=== PATIENT | female | born 1950 | race Caucasian/White ===

== ENCOUNTER → 2019-08-01 | Outpatient (REF) | LOC: M LAB LCGH 11:54 | PROVIDERS: ATTEND Physician Assistant | DX: D48.5 Neoplasm of uncertain behavior of skin (principal) ==

== ENCOUNTER → 2019-11-27 | Outpatient (CLI) | payer BC, MEDICARE ==
--- NOTE | 2019-11-27 15:09 | ECGEPIP ---
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
[2019-11-27 15:21] LABS: HEMOGLOBIN 14.2 g/dl (12.0-15.5); MEAN CORPUSCULAR HEMOGLOBIN 30.4 pg (27.0-33.0); MEAN CORPUSCULAR HGB CONC 33.8 g/dl (32.0-36.5); MEAN CORPUSCULAR VOLUME 89.9 fl (80.0-96.0); PLATELET COUNT, AUTOMATED 351 10^3/uL (150-450); RED BLOOD COUNT 4.67 10^6/uL (4.00-5.40); WHITE BLOOD COUNT 8.5 10^3/uL (4.0-10.0)
--- NOTE | 2019-11-27 15:25 | REP ---
TWO-VIEW CHEST: REASON FOR EXAM: Preoperative evaluation for knee arthroplasty COMPARISON: No priors. FINDINGS: The superior mediastinal structures are midline. The cardiac silhouette is unremarkable in size, shape, and position. The diaphragmatic surfaces of the lungs are regular, and the costophrenic angles are clear. The pulmonary sands are clear. The imaged osseous structures are intact. IMPRESSION: There is no acute cardiopulmonary disease.? Electronically Signed by Andres Doty DO 11/27/2019 03:36 P
[2019-11-27 15:31] LABS: ALBUMIN 4.3 GM/DL (3.2-5.2); ALT/SGPT 37 U/L (12-78); BILIRUBIN,TOTAL 0.4 MG/DL (0.2-1.0); BLOOD UREA NITROGEN 18 MG/DL (7-18); CALCIUM LEVEL 9.7 MG/DL (8.8-10.2); CARBON DIOXIDE LEVEL 30 MEQ/L (21-32); CHLORIDE LEVEL 100 MEQ/L (98-107); CREATININE FOR GFR 0.88 MG/DL (0.55-1.30); GLOMERULAR FILTRATION RATE > 60.0 (>39); GLUCOSE, FASTING 96 MG/DL (70-100); POTASSIUM SERUM 3.8 MEQ/L (3.5-5.1); SODIUM LEVEL 135 MEQ/L (136-145); TOTAL PROTEIN 7.4 GM/DL (6.4-8.2)
[2019-11-27 15:33] LABS: INR 0.93; PROTHROMBIN TIME 12.1 SECONDS (11.8-14.0)
[2019-11-27 16:17] LABS: ERYTHROCYTE SEDIMENTATION RATE 6 mm/hr (0-30)
== END ==
LOC: M LAB 14:09
PROVIDERS: ATTEND Orthopaedic Surgery
DX: Z01.818 Encounter for other preprocedural examination (principal); Z79.01 Long term (current) use of anticoagulants

== ENCOUNTER → 2020-07-21 | Outpatient (CLI) | payer MEDICARE, BC ==
[~2020-07-21] MED LIST: ALEV220T22 PO; BRIM1OPD OU; D 101000 PO; MULTCAP PO; NORV5TAB PO; PANT20TA6 PO; PEPC10TA6 PO; PROHANCE 279.3MG/ML 15ML VIAL As Ordered ONE; ROSU5TAB5 PO; TOPR100T PO; TRIA37.53 PO; VIAC1CHW PO; VITA500C24 PO; XALA0.007 OU
--- NOTE | 2020-07-21 15:08 | REP ---
INDICATION: SENSORINEURAL HEARING LOSS OLGA, MAYUR RM. COMPARISON: None. TECHNIQUE: Axial, sagittal, and coronal imaging planes are utilized. Sequences include spin echo, fast spin echo, FLAIR, diffusion-weighted scans, 3D inversion recovery thin-section imaging, and postcontrast T1 weighted scans. The contrast enhancement dose is 15 mL of intravenous ProHance. FINDINGS: The bony calvarium is intact. Craniocervical junction is unremarkable. There is no MR evidence of paranasal sinus disease. No intraorbital abnormality is seen. There is no evidence of intracranial hemorrhage. There are multiple punctate foci of periventricular and subcortical white matter T2 hyperintensity on FLAIR images in the supratentorial brain. This is most consistent with mild small-vessel atherosclerotic change. Diffusion-weighted scans show no evidence of restricted diffusion. No intracranial mass lesion is seen. Thin sections through the internal auditory canals demonstrate normal 7th and 8th nerves in the IAC's bilaterally. Internal auditory canals are normal and symmetric in size and position. No CP angle cistern mass is seen. No vascular abnormality is appreciated. Contrast enhanced study shows no evidence of intracanalicular extra canalicular abnormal contrast enhancement in either internal auditory canal. Postcontrast whole brain study shows enhancement of normal vasculature. No abnormal in intracranial contrast enhancement is appreciated. IMPRESSION: Mild small vessel atherosclerotic changes. Otherwise negative MRI study of the brain and internal auditory canals. No CP angle cistern or intracanalicular mass lesion seen. <Electronically signed by Godwin Patel > 07/21/20 [id number]
== END ==
LOC: M RAD 12:38
PROVIDERS: ATTEND Otolaryngology
DX: H90.3 Sensorineural hearing loss, bilateral (principal); I67.2 Cerebral atherosclerosis
CPT/HCPCS: 70553; A9576

== ENCOUNTER → 2022-03-10 | Outpatient (REF) | payer MEDICARE, BC ==
[~2022-03-10] MED LIST changes: -PROHANCE 279.3MG/ML 15ML VIAL As Ordered ONE; -TRIA37.53 PO; +TRIA37.577 PO
== END ==
LOC: M SFHCDERM 19:14
PROVIDERS: ATTEND Physician Assistant
DX: L57.8 Other skin changes due to chronic exposure to nonionizing radiation (principal)

== ENCOUNTER → 2022-12-13 | Outpatient (REF) | payer MEDICARE, BC | LOC: M SFHCDERM 17:07 | PROVIDERS: ATTEND Physician Assistant | DX: L57.0 Actinic keratosis (principal) ==

== ENCOUNTER → 2024-03-13 | Outpatient (REF) | payer MEDICARE ==
[~2024-03-13] MED LIST changes: +ROSU5TAB40 PO; -ROSU5TAB5 PO
== END ==
LOC: M SFHCDERM 17:40
PROVIDERS: ATTEND Physician Assistant
DX: D22.5 Melanocytic nevi of trunk (principal); D22.72 Melanocytic nevi of left lower limb, including hip

== ENCOUNTER → 2024-05-01 | Outpatient (REF) | payer MEDICARE | LOC: M LAB REF 17:32 | PROVIDERS: ATTEND Surgery | DX: L90.5 Scar conditions and fibrosis of skin (principal) ==

== ENCOUNTER → 2024-10-04 | Outpatient (REF) | payer MEDICARE ==
[~2024-10-04] MED LIST changes: -ROSU5TAB40 PO; +ROSU5TAB49 PO
== END ==
LOC: M SFHCDERM 15:35
PROVIDERS: ATTEND Physician Assistant
DX: C44.319 Basal cell carcinoma of skin of other parts of face (principal)